=== PATIENT | female | born 1990 | race African-American/Black ===

== ENCOUNTER 2024-05-23 01:08 | Emergency (ER) | payer OTHER, MEDICAID ==
[~2024-05-23] VITALS: Ht 165.1 cm; Wt 68.0 kg
[2024-05-23 01:17] VITALS: BP 95/58; PULSE 112; RESP 30; O2SAT 99
== END 2024-05-23 03:56 ==
LOC: ER 01:08
DX: S00.83XA Contusion of other part of head, initial encounter (principal); X58.XXXA Exposure to other specified factors, initial encounter; Y93.89 Activity, other specified; Y92.89 Other specified places as the place of occurrence of the external cause; Y99.8 Other external cause status
CPT/HCPCS: 99283